=== PATIENT | male | born 1950 | race Caucasian/White ===

== ENCOUNTER 2021-06-11 06:22 | Day surgery (SDC) | payer MEDICARE ==
[2021-06-11] MEDS ORDERED: LACTATED RINGERS 1,000 ML IV ONE ×2 (06:26→08:12)
--- NOTE | 2021-06-11 07:14 | ANESTHESIA ---
Pre-Anesthesia VS, & Labs - Diagnosis screening - Procedure colonoscopy Vital Signs: Temp Pulse Resp BP Pulse Ox 36.1 C L 62 18 144/98 H 96 06/11/21 06:35 06/11/21 06:35 06/11/21 06:35 06/11/21 06:35 06/11/21 06:35 Height: 5 ft 9 in Weight (kg): 78 kg Body Mass Index: 25.4 BMI Classification: Overweight - NPO >8 hours Home Medications and Allergies Home Medications: Ambulatory Orders LORazepam [Ativan] 0.5 mg PO ONCE PRN 06/08/21 Quetiapine Fumarate [Seroquel] 50 mg PO PRN PRN 06/08/21 Tamsulosin [Flomax] 0.4 mg PO DAILY 06/08/21 LORazepam [Ativan] 0.5 mg PO ONCE PRN 06/08/21 Quetiapine Fumarate [Seroquel] 50 mg PO PRN PRN 06/08/21 Tamsulosin [Flomax] 0.4 mg PO DAILY 06/08/21 Allergies/Adverse Reactions: Allergies Allergy/AdvReac Type Severity Reaction Status Date / Time No Known Drug Allergies Allergy Verified 06/08/21 13:21 Anes History & Medical History - Anesthetic History Anesthesia Complications: reports: No previous complications - Medical History Cardiovascular: reports: None Pulmonary: reports: None Gastrointestinal: reports: None Urinary: reports: Benign prostate hypertrophy Musculoskeletal: reports: None Endocrine/Autoimmune: reports: None Skin: reports: None History of Cancer?: No - Surgical History General: reports: Other Exam General: Alert Dental: WNL Mallampati classification: I Respiratory: Lungs clear Cardiovascular: Regular rate Mental/Cognitive Status: Alert/Oriented X3 Plan Anesthesia Type: Total IV Consent for Procedure(s) Verified and Reviewed: Yes Code Status: Attempt Resuscitation ASA classification: 1-Healthy patient Is this case an emergency?: No
[2021-06-11] MEDS ORDERED: PROPOFOL 500 MG/50 ML 500 MG/50 ML VIAL ONE (07:53)
[2021-06-11 08:44] VITALS: BP 125/89
--- NOTE | 2021-06-11 12:21 | ANESTHESIA POST OP EVALUATION ---
Anesthesia Post Eval - Post Anesthesia Eval Vitals: Last Vital Signs Temp 36.7 C 06/11/21 08:29 Pulse 55 L 06/11/21 08:44 Resp 11 L 06/11/21 08:44 BP 125/89 H 06/11/21 08:44 Pulse Ox 98 06/11/21 08:44 CV Function Including HR & BP: Stable Pain Control: Satisfactory Nausea & Vomiting: Negative Mental Status: Baseline Respiratory Status: Airway Patent Hydration Status: Satisfactory Anesthesia Complications: None
== END 2021-06-11 06:23 | disposition home or self-care (01) ==
LOC: SDS 06:22
PROVIDERS: ATTEND Surgery
PROC: 0DJD8ZZ Inspection of Lower Intestinal Tract, Via Natural or Artificial Opening Endoscopic (ICD-10-PCS; principal; 2021-06-11 07:30)
DX: Z12.11 Encounter for screening for malignant neoplasm of colon (principal); K57.30 Diverticulosis of large intestine without perforation or abscess without bleeding; F51.04 Psychophysiologic insomnia; F41.9 Anxiety disorder, unspecified; N40.0 Benign prostatic hyperplasia without lower urinary tract symptoms
CPT/HCPCS: G0121; J7120

== ENCOUNTER 2022-11-11 19:48 | Emergency (ER) | payer MEDICARE ==
--- NOTE | 2022-11-11 20:21 | ED Physician Documentation ---
History of Present Illness - Stated complaint Stated Complaint: LOW HR - Chief complaint Chief Complaint: Cardiac - Additonal information Additional information: Patient 72-year-old male presenting to the emergency department with heart palpi tations and concern for slow heart rate. Reports feeling of increased palpitations x1-2 days. Denies cardiac history. Reports that with the exception of Flomax he takes no prescription medications. Does report a strong family history including a father who required pacemaker placement in his 60s and a mother who had atrial fibrillation. Today checked his pulse with a pulse oximeter and found that the rate was 30 which concerned him and he came to the emergency department for evaluation. Denies any chest pain, shortness of breath, lightheadedness or syncopal episodes. Review of Systems Constitutional: denies: Fever Eyes: denies: Loss of vision Ears: denies: Loss of hearing Nose: denies: Rhinorrhea / runny nose Throat: denies: Dental pain / toothache Cardiac: reports: Palpitations. denies: Chest pain / pressure, Pedal edema, Calf pain Respiratory: denies: Dyspnea : denies: Dysuria Skin: denies: Rash Musculoskeletal: denies: Neck pain Neurologic: denies: Generalized weakness Psychiatric: denies: Depressed Endocrine: denies: Polydypsia PD PAST MEDICAL HISTORY - Past Medical History Cardiovascular: None Respiratory: None Endocrine/Autoimmune: None GI: None : Benign prostate hypertrophy HEENT: None Psych: None Musculoskeletal: None Derm: None - Past Surgical History General: Other - Present Medications Home Medications: Ambulatory Orders Medication Instructions Recorded Confirmed LORazepam [Ativan] 0.5 mg PO ONCE PRN 06/08/21 06/11/21 Quetiapine Fumarate [Seroquel] 50 mg PO PRN PRN 06/08/21 06/11/21 Tamsulosin [Flomax] 0.4 mg PO DAILY 06/08/21 06/11/21 - Allergies Allergies/Adverse Reactions: Allergies Allergy/AdvReac Type Severity Reaction Status Date / Time No Known Drug Allergies Allergy Verified 06/08/21 13:21 PD ED PE NORMAL - Vitals Vital signs reviewed: Yes - General General: Alert and oriented X 3 - HEENT HEENT: Atraumatic, PERRL, EOMI, Ears normal - Neck Neck: Supple, no meningeal sign, No bony TTP - Cardiac Cardiac: RRR, No gallop - Respiratory Respiratory: No respiratory distress, Clear bilaterally - Abdomen Abdomen: Normal bowel sounds, Non tender - Male Male : Deferred - Rectal Rectal: Deferred - Derm Derm: Normal color - Extremities Extremities: No deformity - Neuro Neuro: Alert and oriented X 3, category development analyst 2-12 intact, No motor deficit Results - Vitals Vitals: Vital Signs - 24 hr 11/11/22 11/11/22 11/11/22 19:52 20:03 20:33 Temperature 36.3 C L 36.5 C Heart Rate 105 H 105 H 70 Respiratory 14 14 24 Rate Blood Pressure 173/71 H 173/71 H 138/72 H O2 Saturation 97 97 98 11/11/22 11/11/22 11/11/22 22:06 22:59 23:03 Temperature Heart Rate 58 L 58 L 58 L Respiratory 11 L 15 12 Rate Blood Pressure 148/96 H 139/87 H O2 Saturation 98 97 98 11/11/22 23:31 Temperature Heart Rate 60 Respiratory 10 L Rate Blood Pressure 127/101 H O2 Saturation 98 Oxygen O2 Source Room air - EKG (time done) 2007 Rate: Rate (enter#) (105) Rhythm: NSR [place]: Normal Intervals: Normal IA, Other (Ventricular bigeminy) Ischemia: Non specific changes Compare to prior EKG: Old EKG unavailable 2256 Rate: Rate (enter#) (58) Rhythm: NSR [place]: Normal Intervals: Normal IA QRS: Normal Ischemia: Normal ST segments Compare to prior EKG: Changed from prior EKG Computer interpretation: Agree with computer - Labs Labs: Laboratory Tests 11/11/22 11/11/22 11/11/22 20:19 20:19 20:19 WBC 9.8 RBC 4.86 Hgb 16.5 Hct 48.0 MCV 98.8 H MCH 34.0 H MCHC 34.4 RDW 13.0 Plt Count 319 MPV 9.5 Neut # (Auto) 6.1 Lymph # (Auto) 2.0 [place] # (Auto) 1.5 H Eos # (Auto) 0.2 Baso # (Auto) 0.1 Absolute Nucleated RBC 0.00 Nucleated RBC % 0.0 PT 10.7 INR 1.0 Sodium 136 Potassium 4.2 Chloride 100 L Carbon Dioxide 26 Anion Gap 10.0 BUN 11 Creatinine 1.0 Estimated GFR (MDRD) 74 L Glucose 104 H Calcium 9.4 Phosphorus 3.2 Total Bilirubin 1.2 H AST 36 ALT 54 Alkaline Phosphatase 48 Troponin I High Sens Total Protein 7.4 Albumin 4.1 Globulin 3.3 Albumin/Globulin Ratio 1.2 Lipase 47 11/11/22 20:19 WBC RBC Hgb Hct MCV MCH MCHC RDW Plt Count MPV Neut # (Auto) Lymph # (Auto) [place] # (Auto) Eos # (Auto) Baso # (Auto) Absolute Nucleated RBC Nucleated RBC % PT INR Sodium Potassium Chloride Carbon Dioxide Anion Gap BUN Creatinine Estimated GFR (MDRD) Glucose Calcium Phosphorus Total Bilirubin AST ALT Alkaline Phosphatase Troponin I High Sens 11.9 Total Protein Albumin Globulin Albumin/Globulin Ratio Lipase PD Medical Decision Making - ED course Complexity details: reviewed results, re-evaluated patient, considered differential, d/w patient, d/w family ED course: Patient is 72-year-old male presenting to the emergency department with chief complaint of heart palpitations. Afebrile, hemodynamic stable and arrival to the emergency department. Found to be in bigeminy with alternating atrial and ventricular beats. Comprehensive labs obtained within normal limits or nonactionable. Troponin negative. Patient converted into a sinus rhythm without frequent premature ventricular complexes in the emergency department with ease. Had a long and detailed discussion with the patient concerning his symptoms. He informed me on my reevaluation that he has had the symptoms for duration of time significant enough that he has been seen by primary care and he has referral for cardiology. I encouraged him to discontinue his use of caffeine an d other stimulants. I encouraged him to continue to follow-up carefully with cardiology. We also discussed return precautions for any new or worsening symptoms. Departure - Departure Disposition: 01 Home, Self Care Clinical Impression: Bigeminy Instructions: ED Palpitations Comments: Thank you for allowing us to care for you today at [facility]. Please continue to work towards follow-up with cardiology. I recommend abstaining from caffeine and other stimulants is much as possible until you have an opportunity to follow-up with cardiology. If it anytime you have new or worsening symptoms please return to the emergency department. Discharge Date/Time: 11/11/22 23:50
[2022-11-11 20:26] LABS: BASOPHILS # (AUTO) 0.1 10^3/uL (0.0-0.1); BASOPHILS % (AUTO) 0.6 %; EOSINOPHILS # (AUTO) 0.2 10^3/uL (0.0-0.7); EOSINOPHILS % (AUTO) 1.8 %; HGB - HEMOGLOBIN 16.5 g/dL (14.0-18.0); LYMPHOCYTES % (AUTO) 20.1 %; MEAN CORPUSCULAR HGB CONC 34.4 g/dL (32.0-36.0); MEAN CORPUSCULAR VOLUME 98.8 fL (80.0-94.0); MEAN PLATELET VOLUME 9.5 fL (7.4-11.4); MONOCYTES # (AUTO) 1.5 10^3/uL (0.0-1.0); MONOCYTES % (AUTO) 15.2 %; NEUTROPHILS # (AUTO) 6.1 10^3/uL (1.5-6.6); PLT - PLATELET COUNT 319 10^3/uL (130-450); RED BLOOD COUNT 4.86 10^6/uL (4.70-6.10); WHITE BLOOD COUNT 9.8 x10^3/uL (4.8-10.8)
[2022-11-11 20:40] LABS: ALBUMIN 4.1 g/dL (3.2-5.5); ALBUMIN/GLOBULIN RATIO 1.2 (1.0-2.2); BILIRUBIN,TOTAL 1.2 mg/dL (0.2-1.0); CALCIUM 9.4 mg/dL (8.5-10.3); PHOSPHORUS 3.2 mg/dL (2.5-4.6); POTASSIUM 4.2 mmol/L (3.5-5.0); TOTAL PROTEIN 7.4 g/dL (6.7-8.2)
[2022-11-11 20:50] LABS: PT - PROTHROMBIN TIME 10.7 secs (9.9-12.6)
--- NOTE | 2022-11-11 22:15 | XRAY Report ---
PROCEDURE: Chest 2 View X-Ray INDICATIONS: cough TECHNIQUE: 2 views of the chest were acquired. COMPARISON: None. FINDINGS: Surgical changes and devices: None. Lungs and pleura: No pleural effusions or pneumothorax. Lungs are clear. Mediastinum: Mediastinal contours are normal. Heart size is normal. Bones and chest wall: No suspicious bony abnormalities. Soft tissues appear unremarkable. IMPRESSION: No acute pulmonary process. Reviewed by: Brittany Bowen MD on 11/11/2022 10:14 PM [facility] Approved by: Brittany Bowen MD on 11/11/2022 10:14 PM [facility] Station ID: [id number]
[2022-11-11 23:32] VITALS: BP 127/101
== END 2022-11-11 23:50 | disposition home or self-care (01) ==
LOC: ED 19:48
DX: I49.8 Other specified cardiac arrhythmias (principal)
CPT/HCPCS: 36415; 80053; 83690; 84100; 84484; 85025; 85610; 93005; 99284